=== PATIENT | female | born 1960 | race Caucasian/White ===

== ENCOUNTER 2018-02-11 11:43 | Inpatient (IN) | payer SELFPAY ==
[~2018-02-11] VITALS: Ht 149.9 cm; Wt 71.2 kg
[2018-02-11] MEDS ORDERED: ALBUTEROL (0.083%) 2.5MG/3ML NEB HHN STA (12:22)
[2018-02-11] MEDS ORDERED: ASPIRIN 325MG TABLET PO ONE (12:30)
[2018-02-11 13:10] LABS: BASOPHILS % 0.5 % (0.0-2.0); EOSINOPHILS % 2.1 % (0.0-5.0); HEMATOCRIT. 43.7 % (36.0-48.0); HEMOGLOBIN. 15.2 g/dL (12.0-16.0); LYMPHOCYTES % 43.4 % (20.0-50.0); MEAN CORPUSCULAR VOLUME 94.9 fL (81.0-99.0); MEAN PLATELET VOLUME 9.4 fl (7.4-10.4); MONOCYTES % 5.6 % (2.0-8.0); NEUTROPHILS % 48.4 % (40.0-76.0); PLATELET 247 x1000/uL (130-400); RED CELL DISTRIBUTION WIDTH 13.7 % (11.6-14.6)
[2018-02-11 13:22] LABS: CHLORIDE 101 mEq/L (98-107)
[2018-02-11] MEDS ORDERED: POTASSIUM CHLORIDE 20MEQ TABLET SR PO NR (14:00)
[2018-02-11] MEDS ORDERED: FUROSEMIDE 40MG/4ML VIAL IVP SCH (15:00)
[2018-02-11] MEDS ORDERED: ONDANSETRON HCL 4MG/2ML INJ IV PRN (17:45)
[2018-02-11] MEDS ORDERED: IPRATROPIUM/ALBUTEROL 0.5-3(2.5)MG/3ML NEB HHN PRN (17:45)
[2018-02-11 18:47] LABS: CREATINE KINASE MB FRACTION 1.9 ng/mL (0.5-3.6)
[2018-02-11 20:40] VITALS: BP 112/64
[2018-02-11 22:16] VITALS: BP 112/64
[2018-02-11] MEDS: ACETAMINOPHEN 325MG TABLET PO PRN (22:38)
[2018-02-12] VITALS: BP 123/44
[2018-02-12 04:01] VITALS: BP 112/42
[2018-02-12 08:00] VITALS: BP 119/52
[2018-02-12] MEDS ORDERED: BUDESONIDE 0.5MG/2ML NEB HHN SCH (09:00)
[2018-02-12] MEDS ORDERED: ASPIRIN 81MG TABLET PO SCH (09:00)
[2018-02-12] MEDS ORDERED: FUROSEMIDE 40MG/4ML VIAL IVP SCH (09:00)
[2018-02-12] MEDS ORDERED: REGADENOSON 0.4 MG/5 ML IV NR (09:30)
[2018-02-12 10:09] LABS: BASOPHILS % 0.6 % (0.0-2.0); HEMOGLOBIN. 15.2 g/dL (12.0-16.0); LYMPHOCYTES % 25.5 % (20.0-50.0); MEAN CORPUSCULAR HEMOGLOBIN 33.6 pg (28.0-32.0); MEAN CORPUSCULAR VOLUME 95.1 fL (81.0-99.0); MEAN PLATELET VOLUME 9.5 fl (7.4-10.4); MONOCYTES % 6.7 % (2.0-8.0); NEUTROPHILS % 64.2 % (40.0-76.0); PLATELET 231 x1000/uL (130-400); RED BLOOD CELL COUNT 4.53 mill/uL (4.2-5.4); RED CELL DISTRIBUTION WIDTH 13.9 % (11.6-14.6)
[2018-02-12] MEDS ORDERED: ENOXAPARIN 40MG/0.4ML SYR SUBCUT SCH (10:30)
[2018-02-12 10:58] LABS: CHLORIDE 101 mEq/L (98-107)
[2018-02-12 11:27] LABS: T4 FREE 1.26 ng/dL (0.76-1.46)
[2018-02-12 12:00] VITALS: BP 102/54
[2018-02-12] MEDS ORDERED: REGADENOSON 0.4 MG/5 ML IV ONE (12:12)
[2018-02-12] MEDS: ACETAMINOPHEN 325MG TABLET PO PRN (12:57)
[2018-02-12 16:00] VITALS: BP 111/59
[2018-02-12 17:29] VITALS: BP 111/59
[2018-02-12 18:02] LABS: CREATINE KINASE 123 IU/L (26-192); CREATINE KINASE MB FRACTION 1.4 ng/mL (0.5-3.6)
== END 2018-02-12 18:23 | disposition home or self-care (01) | DRG 203 ==
LOC: ER 11:43 → 6WST 15:52 → EDBEDREQTM 15:59 → EDBEDREQ 15:59 → ENRESERV 19:28 → 6WST 21:20
PROVIDERS: ADMIT Internal Medicine; ATTEND Internal Medicine
DX: M94.0 Chondrocostal junction syndrome [Tietze] (principal); I50.9 Heart failure, unspecified; E66.9 Obesity, unspecified; E78.1 Pure hyperglyceridemia; E87.6 Hypokalemia; F17.210 Nicotine dependence, cigarettes, uncomplicated; Z71.6 Tobacco abuse counseling; Z95.2 Presence of prosthetic heart valve; Z68.31 Body mass index [BMI] 31.0-31.9, adult
CPT/HCPCS: 36415; 71045; 78452; 80048; 80061; 82550; 82553; 83036; 83735; 83880; 84439; 84443; 84484; 85379; 93005; 93017; 93306; 93970; 96374; 99285; 99406; A9500; J1650; J1940; J2785; J7611